=== PATIENT | female | born 1980 | race Caucasian/White ===

== ENCOUNTER 2016-12-07 11:20 | Emergency (ER) | payer OTHER ==
[~2016-12-07] VITALS: Ht 165.1 cm; Wt 76.0 kg
[2016-12-07 11:23] VITALS: Ht 165.1 cm; Wt 76.0 kg
[2016-12-07] MEDS ORDERED: KETOROLAC 60 MG INJ IM STA (11:36)
[2016-12-07] MEDS ORDERED: DIAZEPAM 2 MG TAB PO ONE (12:00)
[2016-12-07 12:04] LABS: URINE BLOOD (Dip) POC Negative (NEGATIVE)
--- NOTE | 2016-12-07 12:31 | RADRPT ---
PROCEDURE: XR Chest. CLINICAL INDICATION: Trauma. Shortness of breath. TECHNIQUE: Single frontal view. COMPARISON: None. FINDINGS: The lungs are clear. The heart size is normal. There is no pleural effusion. There is no pneumothorax. IMPRESSION: 1. Normal chest radiograph. RPTAT: QQ .Alexander Osorio MD, MD Date Time Electronically viewed and signed by .Alexander Osorio MD, on 12/07/2016 12:31 .R/
--- NOTE | 2016-12-07 12:32 | RADRPT ---
PROCEDURE: XR Cervical Spine. CLINICAL INDICATION: Trauma due to a fall. Neck pain. TECHNIQUE: Three views of the cervical spine were performed. Frontal, lateral, and AP open-mouth o dontoid. The images were reviewed on a PACS workstation. COMPARISON: None. FINDINGS: There is normal stature and alignment of the vertebrae. There is no fracture. There is no lytic or blastic lesion. The disk height is normal. The prevertebral soft tissues are normal. IMPRESSION: 1. Unremarkable images of the cervical spine. RPTAT: QQ .Alexander Osorio MD, MD Date Time Electronically viewed and signed by .Alexander Osorio MD, on 12/07/2016 12:32 .R/
--- NOTE | 2016-12-07 12:33 | RADRPT ---
PROCEDURE: XR Left Shoulder. CLINICAL INDICATION: Left shoulder pain. TECHNIQUE: Two views. Frontal and scapular Y-view. COMPARISON: No prior study is available for comparison. FINDINGS: There is no fracture or dislocation. The soft tissues are normal. Articular surfaces are intact. There is no lytic or blastic lesion. There is no radiopaque foreign body. IMPRESSION: 1. Normal images of the left shoulder. RPTAT: QQ .Alexander Osorio MD, MD Date Time Electronically viewed and signed by .Alexander Osorio MD, on 12/07/2016 12:32 .R/
--- NOTE | 2016-12-07 12:50 | ERD ---
ER Documentation Chief Complaint Date/Time DATE: 12/07/16 TIME: 12:47 Chief Complaint generalized body pain due to fall 4 days ago; pain got worst everyday HPI This is a 36-year-old female presents to the ER after she slipped and fell onto her buttocks 4 days ago. Since then patient has developed worsening entire body pain. Patient states that pain is worse along the neck and the left side of the scapula. She is also experiencing mid and lower back pain. Patient has a past medical history of a herniated disc in her lower back. Patient denies any urinary bowel incontinence. She denies any saddle like anesthesia. Patient does complain of numbness and tingling of bilateral legs. Patient is also complaining of shortness of breath and chest pain. Chest pain and shortness of breath is nonexertional and is associated with fall. Patient denies any nausea vomiting or diarrhea she does not have any fevers or chills. She denies any headache, vision loss or vision changes. Patient did not hit her head she did not lose consciousness. ROS 12 point review of systems was done, all negative except per HPI. Medications Home Meds Active Scripts Orphenadrine Citrate (Norflex) 100 Mg Tablet.sa, 100 MG PO BID for 5 Days, TAB.SA Prov:OLVIN RIVERA C 12/07/16 Ibuprofen* (Motrin*) 600 Mg Tab, 600 MG PO Q6, #30 TAB Prov:MIGUEL,OLVIN C 12/07/16 Hydrocodone/Acetaminophen (Whitney 5-325 Tablet) 1 Each Tablet, 1 TAB PO Q6H Y for PAIN, #10 TAB Prov:ALLIE RIVERANA C 12/07/16 Allergies Allergies: Coded Allergies: No Known Allergy (Unverified , 12/07/16) NKA PER TONYA TORRES IN ER PMhx/Soc Hx Miscellaneous Medical Probl: Yes (thyroid, hx disk herniation) Hx Alcohol Use: No Hx Substance Use: No Hx Tobacco Use: No Physical Exam Vitals Vital Signs Date Time Temp Pulse Resp B/P Pulse Ox O2 Delivery O2 Flow Rate FiO2 12/07/16 11:23 98.0 99 17 119/70 100 Physical Exam GENERAL: The patient is well developed and appropriate for usual state of health , in no apparent distress. HEENT: Atraumatic. Conjunctivae are pink. Pupils equal, round, and reactive to light. Extraocular muscles are grossly intact. Bilateral tympanic membranes are clear with no evidence of erythema, effusion or dulling of the light reflex. The oropharynx is clear with no erythema or exudates. NECK: C-spine is soft and supple. There is no cervical lymphadenopathy. No crepitus no step-offs patient is tender to palpation along trapezius muscle, positive left-sided scapular tenderness. CHEST: Clear to auscultation bilaterally. There are no rales, wheezes or rhonchi. HEART: Regular rate and rhythm. No murmurs, clicks, rubs or gallops. BACK: Patient is tender to palpation along the T-spine L spine however there is no crepitus, no step-offs tense paraspinal muscles. EXTREMITIES: Equal pulses bilaterally. No focal swelling or erythema. Full range of motion. Grossly neurovascularly intact. NEURO: Alert and oriented. Cranial nerves II through XII are intact. Motor strength in all 4 extremities with 5/5 strength. Sensation grossly intact. Normal speech and gait. SKIN: There is no apparent rash or petechia. The skin is warm and dry. Results 24 hrs Laboratory Tests Test 12/07/16 12:06 Bedside Urine pH (LAB) 8.5 Bedside Urine Protein (LAB) Negative Bedside Urine Glucose (UA) Negative Bedside Urine Ketones (LAB) Negative Bedside Urine Blood Negative Bedside Urine Nitrite (LAB) Negative Bedside Urine Leukocyte Esterase (L Negative Current Medications Medications (Trade) Dose Ordered Sig/Lali Route PRN Reason Start Time Stop Time Status Last Admin Dose Admin Ketorolac Tromethamine (Toradol) 60 mg ONCE STAT IM 12/07/16 11:36 12/07/16 11:41 DC 12/07/16 12:14 Diazepam (Valium) 2 mg ONCE ONCE PO 12/07/16 12:00 12/07/16 12:01 DC 12/07/16 12:17 Procedures/MDM EKG was [id number] no ST elevation or T wave inversion, this EKG was read by Dr. Head. Differential Diagnosis includes but is not limited to back strain, vertebral fracture, epidural abscess, cauda equina, herniated disc, AAA rupture, kidney stones, UTI, pyelonephritis. This is a 36-year-old female presents to the ER with entire back pain after falling. At this time there is no evidence of fractures. I doubt cauda equina syndrome or epidural abscess. Patient is neurovascularly intact with no urinary bowel incontinence. She is able to ambulate on her own without any problems here in the ER. She is afebrile and well-appearing. She was given Toradol and Valium, this helped her pain. Patient will be sent home with Whitney, ibuprofen, Norflex. Patient needs to follow-up with her primary care doctor within 1-2 days or return to ER sooner if symptoms worsen. My medical decision making shared with hands and agrees with plan. Departure Diagnosis: Primary Impression: Back pain Condition: Stable OLVIN RIVERA December 07, 2016 12:50
--- NOTE | 2016-12-07 12:50 | RADRPT ---
PROCEDURE: CT Lumbar Spine. CLINICAL INDICATION: Fall, low back pain TECHNIQUE: The study was performed on a GE [address] scanner. Spiral axial 1 mm i mages were obtained through the lumbar spine and reformatted at 2.5 mm slice thickness. Sagittal and coronal reformations were created from the raw axial data. The images were reviewed on a PACS works tation. CTDI = 20.01 mGy DLP = 67 4.45 mGy-cm One or more of the following dose reduction techniques were used: Automated exposure control Adjustment of the mA and / or kV according to patient size Use of iterative reconstruction technique. COMPARISON: Radiographs of the thoracic spine performed same day a FINDINGS: There is preservation of the usual lumbar lordosis. There is a unilateral pars defect at L5 on the left, chronic-appearing, without anterolisthesis. Vertebral body heights are preserved. Interverte bral disk spaces are normal. There is nonspecific sclerosis at the left sacroiliac joint that may be degenerative. There is no d efinite erosive change. Limited intrapelvic and intra-abdominal evaluation appears grossly unremark able. T12-L1: The disc and neuroforamina are unremarkable. L1-L2: The disc and neuroforamina are unremarkable. L2-L3: The disc and neuroforamina are unremarkable. L3-L4: The disc and neuroforamina are unremarkable. L4-L5: The disc and neuroforamina are unremarkable. L5-S1: The disc and neuroforamina are unremarkable. IMPRESSION: 1. Unilateral pars defect at L5 on the left, likely chronic in nature, without anterolisthesis. 2. No definite CT evidence of acute osseous abnormality. 3. No evidence of central canal or foraminal stenosis. 4. Nonspecific sclerosis on both sides of the left sacroiliac joint, possibly degenerative or infla mmatory in nature. If clinically warranted MRI may provide additional detail. RPTAT: UU .Vega Paris MD, MD Date Time Electronically viewed and signed by .Vega Paris MD, on 12/07/2016 12:50 .K/
[2016-12-07] MEDS ORDERED: IBUP-1542 PO (12:56)
[2016-12-07] MEDS ORDERED: ORPH100T PO (12:56)
[2016-12-07] MEDS ORDERED: HYDR-906 PO (12:56)
--- NOTE | 2016-12-07 13:28 | RADRPT ---
PROCEDURE: XR Thoracic Spine. CLINICAL INDICATION: Trauma due to a fall. Back pain. TECHNIQUE: Three views. Frontal, lateral, and lateral swimmers. COMPARISON: None available FINDINGS: There is mild scoliosis convex left. Alignment is otherwise normal. There is no fracture. There is no lytic or blastic lesion. The disk height is normal. The paravertebral soft tissues are unremarkable. IMPRESSION: 1. Mild thoracic scoliosis convex left. 2. Otherwise normal images of the thoracic spine. RPTAT: QQ .Alexander Osorio MD, MD Date Time Electronically viewed and signed by .Alexander Osorio MD, MD on 12/07/2016 13:27 .R/
== END 2016-12-07 13:10 | disposition home or self-care (01) ==
LOC: FTE 11:20
DX: M54.6 Pain in thoracic spine (principal); M54.5 Low back pain
CPT/HCPCS: 71010; 72040; 72072; 72131; 73010; 81003; 93005; 96372; J1885; Z7502; Z7610